=== PATIENT | male | born 1960 | race Caucasian/White ===

== ENCOUNTER → 2021-07-18 | Outpatient (CLI) | payer BC ==
--- NOTE | 2021-07-18 14:36 | CT ---
EXAMINATION TYPE: CT abdomen pelvis w con DATE OF EXAM: 07/18/2021 COMPARISON: NONE HISTORY: 61-year-old male R10.32, LLQ pain TECHNIQUE: Contiguous axial scanning of the abdomen and pelvis following administration of 100 ml Iso [place] 300 IV contrast. Delayed images through the kidneys and coronal/sagittal reconstructions perform ed. CT DLP: 1713 mGycm Automated exposure control for dose reduction was used. FINDINGS: Heart normal size without pericardial effusion. Some strandy atelectasis in the lower lungs. No pleur al effusion. Small hiatal hernia. Incidental 1.4 cm cyst with a IVb left liver lobe. Liver mildly enlarged at 19.1 cm. Portal venous sy stem is patent. No biliary ductal dilatation. Gallbladder, left adrenal gland, right kidney, spleen, pancreas within normal limits. Mild thickening of the right adrenal gland without discrete nodularity. A couple tiny subcentimeter c ortical hypodensities medial left kidney too small for accurate CT characterization, likely tiny teresa ical cysts. No dilated small bowel, free fluid, or free air. A few borderline sized mid and left abdominal mesenteric lymph nodes measuring up to 8 mm, axial imag e 42 probably reactive/post inflammatory. Normal appendix. Moderate stool burden. Left-sided colonic diverticulosis, greatest in the proximal to mid sigmoid colon. Mild pericolonic fat stranding along the distal sigmoid colon, axial image 82. Moderate circumferential bladder wall thickening. Prostate gland measures 3.9 cm wide. Small fatty le ft inguinal hernia. Some mildly enlarged inguinal lymph nodes measuring up to 2.2 cm short axis on the right, refer to co indigo image 28. Measuring up to 1.3 cm on the left. Probably reactive/post inflammatory. Bones: Moderate degenerative disc disease mid to lower lumbar spine. IMPRESSION: 1. LEFT-SIDED CLONIC DIVERTICULOSIS, GREATEST IN THE SIGMOID COLON. THERE IS MILD PERICOLONIC STRANDY DENSITY ALONG THE DISTAL SIGMOID COLON THAT COULD REPRESENT EITHER PROMINENT PERICOLONIC VESSELS ALIS SILVANA INFLAMMATION RELATING TO MILD ACUTE DIVERTICULITIS. THE FORMER IS SOMEWHAT FAVORED BUT FURTHER CL INICAL CORRELATION IS RECOMMENDED. NO ABSCESS OR FREE AIR. 2. AN ENLARGED RIGHT INGUINAL LYMPH NODE MEASURES 2.2 CM SHORT AXIS, CORONAL IMAGE 28. CORRELATE WITH PHYSICAL EXAM FINDINGS. PROBABLY REACTIVE/POST INFLAMMATORY. IF ANY ENLARGING PALPABLE ABNORMALITY, FOLLOW-UP TARGETED ULTRASOUND CAN BE PERFORMED. 3. MODERATE CIRCUMFERENTIAL BLADDER WALL THICKENING COULD REPRESENT CHRONIC BLADDER WALL HYPERTROPHY OR CYSTITIS. CLINICALLY CORRELATE. 4. SMALL FATTY LEFT INGUINAL HERNIA. SMALL HIATAL HERNIA.
== END | disposition home or self-care (01) ==
LOC: RADCTMAIN 09:47
PROVIDERS: ATTEND Family Medicine
DX: K57.90 Diverticulosis of intestine, part unspecified, without perforation or abscess without bleeding (principal); R59.0 Localized enlarged lymph nodes; K40.90 Unilateral inguinal hernia, without obstruction or gangrene, not specified as recurrent; K44.9 Diaphragmatic hernia without obstruction or gangrene
CPT/HCPCS: 74177; Q9967

== ENCOUNTER → 2022-01-06 | Outpatient (CLI) | payer BC ==
--- NOTE | 2022-01-06 09:30 | CT ---
EXAMINATION TYPE: CT pelvis w con DATE OF EXAM: 01/06/2022 COMPARISON: CT abdomen and pelvis July 18, 2021 HISTORY: Enlarged lymph node CT DLP: 1798.1 mGycm Automated exposure control for dose reduction was used. CT pelvis without oral but with IV contrast. CONTRAST: Performed with IV Contrast, patient injected with 100 mL of Isovue 300. FINDINGS: Diverticula in the sigmoid colon are present. No CT evidence for diverticulitis. No abnormal bowel di latation. Normal gas-filled appendix from cecum. Prostate gland is normal in size. There is anterior calcification redemonstrated centrally. Persistent small fat-containing left inguinal hernia. Persistent symmetric prominent but subcentimete r bilateral groin lymph nodes. No new or enlarging greater than 1 cm retroperitoneal or pelvic adenop athy is clearly identified. Incidental 1.4 cm benign-appearing thin-walled cyst in the anterior-inferior liver. Mild peripheral c alcified plaque of the aorta extends into branch vessels. Moderate disc space narrowing and mild to moderate spurring L5-S1 level. Multiple posterior spurs and spur disc complexes efface the anterior thecal sac mid to lower lumbar spine sagittal image 37 for r eference. IMPRESSION: No suspicious new or enlarging greater than 1.0 cm pelvic adenopathy to suggest product o f prostate cancer malignancy.
== END | disposition home or self-care (01) ==
LOC: RADCTMAIN 07:02
PROVIDERS: ATTEND Family Medicine
DX: R59.0 Localized enlarged lymph nodes (principal)
CPT/HCPCS: 72193; Q9967